=== PATIENT | female | born 1990 | race African-American/Black ===

== ENCOUNTER 2017-10-29 18:59 | Emergency (ER) | payer SELFPAY ==
[~2017-10-29] VITALS: Ht 162.6 cm; Wt 127.2 kg
[2017-10-29 19:57] LABS: APPEARANCE SL.HAZY ((CLEAR)); BILIRUBIN NEGATIVE; BLOOD NEGATIVE; COLOR YELLOW ((YELLOW)); GLUCOSE (STRIP) NEGATIVE; KETONES NEGATIVE; LEUKOCYTES LARGE; NITRITE NEGATIVE; PROTEIN (STRIP) NEGATIVE; UROBILINOGEN 0.2 MG/DL (0.2-1.0)
[2017-10-29 20:01] LABS: BACTERIA 1+ /HPF; EPITHELIAL CELLS 1+ /HPF; MUCUS TRACE /LPF; RED BLOOD CELLS 0-5 /HPF (0-5); UCUL ADDED? YES
[2017-10-29 20:12] LABS: HEMATOCRIT 39.2 % (36.0-46.0); HEMOGLOBIN 12.9 G/DL (11.9-15.5); MCH 29.4 PG (29.0-34.0); MCHC 32.9 G/DL (30.0-36.0); MCV 89.3 FL (83-99); PLATELET COUNT 288 K/uL (156-360); RBC DIS.WIDTH-SD 42.7 % (39-53); RED BLOOD COUNT 4.39 M/uL (3.80-5.20); WHITE BLOOD COUNT 14.9 K/uL (4.1-10.2)
[2017-10-29 20:20] LABS: ALBUMIN 3.9 g/dL (3.2-4.8); CHLORIDE 107 mEq/L (99-109); POTASSIUM 4.3 mEq/L (3.7-5.4); SODIUM 138 mEq/L (136-147)
[2017-10-29 20:22] LABS: GLUCOSE 84 mg/dL (70-99)
[2017-10-29 20:23] LABS: TOTAL PROTEIN 7.8 g/dL (6.4-8.3)
[2017-10-29 20:24] LABS: TOTAL BILIRUBIN 0.1 mg/dL (0.0-1.0)
[2017-10-29 20:26] LABS: ALKALINE PHOSPHATASE 93 IU/L (3-129); GFR ESTIMATE (CALCULATED) > 59 mL/min/
[2017-10-29 20:27] LABS: UREA NITROGEN (BUN) 17 mg/dL (9-23)
[2017-10-29 20:28] LABS: AST (GOT) 11 IU/L (2-34)
[2017-10-29 20:29] LABS: ALT (GPT) 9 IU/L (3-49); LIPASE 16 U/L (1.0-51.0)
[2017-10-29 20:37] LABS: QUANTITATIVE HCG < 4.0 MIU/ML
[2017-10-29] MEDS ORDERED: BENTYL20 MG PO (22:52)
[2017-10-29] MEDS ORDERED: ZOFRAN ODT8 MG PO (22:52)
[2017-10-29 23:22] VITALS: BP 154/93
== END 2017-10-29 23:22 | disposition home or self-care (01) ==
LOC: EXP 18:59 → EME 18:59 → EXP 23:22
DX: R10.9 Unspecified abdominal pain (principal); D25.9 Leiomyoma of uterus, unspecified; R11.0 Nausea; E86.0 Dehydration; R03.0 Elevated blood-pressure reading, without diagnosis of hypertension; Z90.79 Acquired absence of other genital organ(s); Z90.49 Acquired absence of other specified parts of digestive tract
CPT/HCPCS: 74176; 80053; 81003; 83690; 84702; 85027; 87086; 99281; 99284; J0500; J1885